=== PATIENT | female | born 1965 | race Caucasian/White ===

== ENCOUNTER 2016-09-29 22:31 | Emergency (ER) | payer BC ==
[~2016-09-29] VITALS: Ht 170.2 cm; Wt 78.7 kg
[~2016-09-29 22:31] MED LIST: ELAVIL25 MG PO; PEPCID40 MG PO; PERCOCET 5/31 TABLET PO; YAZ 28 TABLET1 EACH; ZOFRAN4 MG PO
[2016-09-29 23:18] LABS: HEMATOCRIT 37.2 % (36.0-46.0); MCH 31.2 PG (29.0-34.0); MCHC 34.7 G/DL (30.0-36.0); MCV 90.1 FL (83-99); MEAN PLAT.VOLUME 10.1 uM^3 (9.5-12.4); PLATELET COUNT 287 K/uL (156-360); RBC DIS.WIDTH-CV 12.8 % (11.8-14.6); RBC DIS.WIDTH-SD 42.3 % (39-53); RED BLOOD COUNT 4.13 M/uL (3.80-5.20); WHITE BLOOD COUNT 12.9 K/uL (4.1-10.2)
[2016-09-29 23:28] LABS: CHLORIDE 102 mEq/L (99-109); POTASSIUM 3.7 mEq/L (3.7-5.4)
[2016-09-29 23:29] LABS: SODIUM 137 mEq/L (136-147)
[2016-09-29 23:30] LABS: GLUCOSE 119 mg/dL (70-99)
[2016-09-29 23:32] LABS: ANION GAP 14 MEQ/L (2-14)
[2016-09-29 23:34] LABS: GFR ESTIMATE (CALCULATED) > 59 mL/min/
[2016-09-29 23:35] LABS: UREA NITROGEN (BUN) 10 mg/dL (9-23)
[2016-09-29 23:43] LABS: TROP-I INTERPRETATION NEGATIVE; TROPONIN-I < 0.01 ng/mL (0.0-0.30)
[2016-09-30 00:38] LABS: TOTAL BILIRUBIN 0.4 mg/dL (0.0-1.0)
[2016-09-30 00:39] LABS: ALKALINE PHOSPHATASE 36 IU/L (3-129)
[2016-09-30 00:41] LABS: DIRECT BILIRUBIN 0.2 mg/dL (0.0-0.3)
[2016-09-30 00:43] LABS: LIPASE 3 U/L (1.0-51.0)
[2016-09-30] MEDS ORDERED: ZOFRAN4 MG PO (01:33)
[2016-09-30] MEDS ORDERED: PERCOCET 5/31 TABLET PO (01:33)
[2016-09-30] MEDS ORDERED: OMEGA 3 PO (01:35)
[2016-09-30] MEDS ORDERED: NEXIUM20 MG PO (01:35)
[2016-09-30 02:02] VITALS: BP 147/81
== END 2016-09-30 02:05 | disposition home or self-care (01) ==
LOC: EME 22:31
DX: R10.9 Unspecified abdominal pain (principal); M54.9 Dorsalgia, unspecified; R00.0 Tachycardia, unspecified; Q63.9 Congenital malformation of kidney, unspecified
CPT/HCPCS: 71020; 74177; 80048; 80076; 83690; 84484; 85027; 93005; 99281; 99284; J2270; J7030